=== PATIENT | male | born 1985 | race African-American/Black ===

== ENCOUNTER 2025-02-28 16:25 | Emergency (ER) | payer OTHER ==
[~2025-02-28] VITALS: Ht 175.2 cm; Wt 90.7 kg
== END 2025-02-28 19:02 | disposition home or self-care (01) ==
LOC: ED 16:25
DX: S93.401A Sprain of unspecified ligament of right ankle, initial encounter (principal); S40.011A Contusion of right shoulder, initial encounter; Y35.891A Legal intervention involving other specified means, law enforcement official injured, initial encounter; Y93.89 Activity, other specified; Y92.89 Other specified places as the place of occurrence of the external cause; Y99.8 Other external cause status